=== PATIENT | female | born 1995 | race American Indian/Alaskan Native ===

== ENCOUNTER 2018-06-03 11:36 | Emergency (ER) | payer MEDICAID, OTHER ==
[2018-06-03 11:49] VITALS: BP 113/65; PULSE 63; RESP 17; TEMP 98.5; O2SAT 97; BMI 28.2
--- NOTE | 2018-06-03 12:16 | ED PDOC ---
HPI: Female Pain Time Seen by Provider: 06/03/18 12:05 Chief Complaint (Nursing): Female Genitourinary Chief Complaint (Provider): vaginitis History Per: Patient History/Exam Limitations: no limitations Onset/Duration Of Symptoms: Days (x2) Current Symptoms Are (Timing): Still Present Associated Symptoms: denies: Fever, Chills, Urinary Symptoms Additional Complaint(s): Federica Donis is a 23 year old female, with no significant past medical history, who presents to the emergency department complaining of a vaginal irritation onset for x2 days. Patient reports feeling itchy and irritated to external genitalia. She is sexually active but not currently. She denies any fever, chills, vaginal discharge, abdominal pain or dysuria. No further medical complaints. PMD: Dr. Ken Past Medical History Reviewed: Historical Data, Nursing Documentation, Vital Signs Vital Signs: Last Vital Signs Temp 98.5 F 06/03/18 11:46 Pulse 63 06/03/18 11:46 Resp 17 06/03/18 11:46 BP 113/65 06/03/18 11:46 Pulse Ox 97 06/03/18 11:46 - Medical History PMH: Migraine - Surgical History Surgical History: No Surg Hx - Family History Family History: States: Unknown Family Hx - Social History Current smoker - smoking cessation education provided: No Alcohol: None Drugs: Denies - Immunization History Hx Tetanus Toxoid Vaccination: No Hx Influenza Vaccination: No Hx Pneumococcal Vaccination: No - Home Medications Home Medications: Ambulatory Orders Medication Instructions Recorded Acetaminophen [Tylenol 325mg tab] 2 tab PO PRN PRN 05/17/17 oxyCODONE [oxyCODONE Immediate 1 tab PO PRN PRN 05/17/17 Release Tab] Fluconazole [Diflucan] 150 mg PO DAILY #1 tab 06/03/18 - Allergies Allergies/Adverse Reactions: Allergies Allergy/AdvReac Type Severity Reaction Status Date / Time Penicillins Allergy RASH Verified 05/17/17 13:41 Review of Systems ROS Statement: Except As Marked, All Systems Reviewed And Found Negative Constitutional: Negative for: Fever, Chills Gastrointestinal: Negative for: Abdominal Pain Genitourinary Female: Positive for: Other (vaginal irritation). Negative for: Dysuria, Vaginal Discharge Physical Exam - Reviewed Nursing Documentation Reviewed: Yes Vital Signs Reviewed: Yes - Physical Exam Appears: Positive for: No Acute Distress Head Exam: Positive for: ATRAUMATIC, NORMOCEPHALIC Skin: Positive for: Normal Color, Warm, Dry Eye Exam: Positive for: Normal appearance Neck: Positive for: Painless ROM Respiratory: Negative for: Respiratory Distress Gastrointestinal/Abdominal: Positive for: Normal Exam, Soft. Negative for: Tenderness, Guarding, Rebound Pelvic Exam: Positive for: No Cerv. Motion Tender, Other (No adnexal mass or tenderness). Negative for: Discharge Back: Positive for: Normal Inspection. Negative for: L CVA Tenderness, R CVA Tenderness Extremity: Positive for: Normal ROM (upper and lower extremities). Negative for : Deformity, Swelling Neurologic/Psych: Positive for: Alert, Oriented - ECG O2 Sat by Pulse Oximetry: 97 (RA) Pulse Ox Interpretation: Normal Medical Decision Making Medical Decision Making: Time: 12:05 Initial Impression: Vaginitis Initial Plan: --Urine --Chlamydia/GC RNA, TMA sent Pt. well appearing, abd. soft/nt, 12:20 Upon provider evaluation patient is medically stable, and requires no further treatment in the ED at this time. Patient will be discharged home with Rx for Diflucan. Counseling was provided and all questions were answered regarding diagnosis. There is agreement to discharge plan. Return if symptoms persist or worsen. Scribe Attestation: Documented by Jasson Slater, acting as a scribe for Deja Abraham PA-C Provider Scribe Attestation: All medical record entries made by the Scribe were at my direction and personally dictated by me. I have reviewed the chart and agree that the record accurately reflects my personal performance of the history, physical exam, medical decision making, and the department course for this patient. I have also personally directed, reviewed, and agree with the discharge instructions and disposition. Disposition - Clinical Impression Clinical Impression: Vaginitis - Patient ED Disposition Is Patient to be Admitted: No Doctor Will See Patient In The: Office Counseled Patient/Family Regarding: Studies Performed - Disposition Disposition: Routine/Home Disposition Time: 12:22 Condition: STABLE Prescriptions: Fluconazole [Diflucan] 150 mg PO DAILY #1 tab Instructions: Vaginitis Forms: [facility] ([place])
== END 2018-06-03 12:47 | disposition home or self-care (01) ==
LOC: H.ER 11:36
DX: N76.0 Acute vaginitis (principal); Z88.0 Allergy status to penicillin